=== PATIENT | female | born 1950 | race Caucasian/White ===

== ENCOUNTER 2017-04-25 13:48 | Emergency (ER) | payer MEDICARE, OTHER ==
--- NOTE | 2017-05-08 15:51 | ER ---
ADMIT: 04/25/2017 RM/LOC: ER [facility] MR#: [id number] [facility] [id number] ZULEMA RUTH [facility] [place] [address] Emergency Room Report SEX: F AGE: 66 : 1950 DATE: 04/25/2017 A 66-year-old with sudden onset of pain in the back of the knee down the calf on the right. See T-sheet for history and physical. 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 Instructed to follow up with her doctor yet this week. Nikcolas Herron MD/ rakan JOB #: [id number] CC: Kenney Villegas MD, Attending Physician Tisha Ramirez MD, Family Physician
== END 2017-04-25 15:00 | disposition home or self-care (01) ==
LOC: ER 13:48
DX: M71.21 Synovial cyst of popliteal space [Baker], right knee (principal); Z90.710 Acquired absence of both cervix and uterus; Z88.6 Allergy status to analgesic agent; Z88.8 Allergy status to other drugs, medicaments and biological substances; Z79.899 Other long term (current) drug therapy